=== PATIENT | female | born 1985 | race American Indian/Alaskan Native ===

== ENCOUNTER 2017-09-09 00:37 | Emergency (ER) | payer MEDICAID ==
[2017-09-09 01:01] VITALS: BP 139/89
[2017-09-09 01:57] LABS: Anion Gap 18 mmol/L; BUN/Creatinine Ratio 17; Blood Urea Nitrogen 12 mg/dL (7-17); Calcium 9.7 mg/dL (8.4-10.2); Carbon Dioxide 27 mmol/L (22-30); Chloride 100.2 mmol/L (98-107); Glucose 92 mg/dL (65-100); Potassium 4.5 mmol/L (3.6-5.0); Sodium 141 mmol/L (137-145)
[2017-09-09 02:01] LABS: Hematocrit 33.6 % (30.3-42.9); Mean Corpuscular HGB Conc 33 % (30-34); Platelet Count 297 K/mm3 (140-440); Red Blood Count 5.08 M/mm3 (3.65-5.03); Red Cell Distribution Width 15.5 % (13.2-15.2)
[2017-09-09 02:11] LABS: Mean Corpuscular Hemoglobin 22 pg (28-32); Mean Corpuscular Volume 66 fl (79-97)
[2017-09-09 05:38] LABS: Anisocytosis 2+; Basophils % (Manual) 0 % (0.0-1.8); Blastocytes % (Manual) 0 %; Elliptocytes 1+; Eosinophils % (Manual) 0 % (0.0-4.3); Microcytosis 1+
[2017-09-09 05:39] LABS: Diff Status Complete; Hypochromasia 2+; Ovalocytes 1+
== END 2017-09-09 03:23 | disposition left against medical advice (07) ==
LOC: ED 00:37
DX: R07.89 Other chest pain (principal); Z53.21 Procedure and treatment not carried out due to patient leaving prior to being seen by health care provider
CPT/HCPCS: 36415; 80048; 81025; 84484; 85007; 85025; 93005; 93010

== ENCOUNTER 2021-06-27 00:34 | Emergency (ER) | payer SELFPAY | END 2021-06-27 04:47 | LOC: ED 00:34 | DX: R07.89 Other chest pain (principal); Z53.21 Procedure and treatment not carried out due to patient leaving prior to being seen by health care provider ==